=== PATIENT | male | born 1935 | race Caucasian/White ===

== ENCOUNTER 2018-07-29 18:48 | Emergency (ER) | payer MEDICARE, OTHER, SELFPAY ==
[2018-07-29 18:49] VITALS: BP 149/100; PULSE 137; RESP 24; TEMP 37.1; O2SAT 98; BMI 28.7
--- NOTE | 2018-07-29 19:15 | ED.VISSUMM ---
- ER Visit Summary Date of Service: 07/29/18 Chief Complaint: Left-sided abdominal pain History of Present Illness: The patient is a 82 M presenting with sudden onset of left lower quadrant pain. This started several hours prior to arrival. He denies nausea or vomiting. He noted blood in his urine just prior to arrival. No history of kidney stones. No other complaints. Physical Examination: Vitals are stable. Patient is afebrile. Alert no acute distress. HEENT exam is unremarkable. Neck is supple. Lungs are clear and equal bilaterally. Heart is regular rate and rhythm. Abdomen is soft left lower quadrant tenderness with no rebound or guarding Back: No CVA tenderness Extremities are unremarkable. Skin is warm and dry. No focal neurologic deficit. Remainder of exam is unremarkable. Emergency Department Course and Treatment: Patient initially declined pain medications. He was then given Tylenol. CBC, chemistries unremarkable. Urinalysis shows 0 white cells, over [address] flank shows mild hydronephrosis caused by left 2.9 mm distal ureteral stone. Patient is resting comfortably in the emergency department. He is requesting one dose of pain medication and was given OxyIR. He is given a prescription for Percocet. Advised to follow-up with Dr. Rosas. Advised to return to the ED for worsening complaints. Disposition: Discharge home Impression: Urolithiasis This note was generated with [employer] dictation software. It may contain incorrect words, spelling, and punctuation that were not noted in review of the chart prior to signing ED Disposition - Plan for ED Patient: Chief Complaint: Abd Pain Instructions: ED Stone Renal W Colic Prescriptions: Oxycodone HCl/Acetaminophen [Percocet 5/325] 1 tablet PO Q6H PRN PRN 3 Days #12 tablet PRN Reason: Pain Referrals: Lior Rosas MD [STAFF PHYSICIAN] - Michael Nelson MD [STAFF PHYSICIAN] - Elbert Newton MD [Primary Care Provider] -
[2018-07-29] MEDS: 0.9% Normal Saline 1,000 ML 250 ML IV (19:33)
[2018-07-29 19:41] LABS: Mucous, Urine 0 SEEN /hpf (<or=2+); White Blood Cells 0 SEEN /hpf (0-5)
[2018-07-29 19:57] LABS: Color, Urine Red (Yellow); Glucose, Dipstick Normal (Normal); Ketone-Dipstick 50 mg/dl (Negative); Leukocyte Esterase-Dipstick 25 /ul (Negative); Nitrite-Dipstick Negative (Negative); Occult Blood-Urine 250 /ul (Negative); Protein-Dipstick 30 mg/dl (Negative); Specific Gravity, Urine 1.015 (1.002-1.030); Urine Bilirubin Dipstick Negative (Negative); Urine Clarity Sl. Cloudy (Clear); Urine Urobilinogen 1 mg/dl (Normal)
[2018-07-29 19:57] LABS: Absolute Neutrophil Count 7.1 X10^3/uL (2.0-7.7); Basophil# 0.02 X10^3/uL; Basophil% 0.2 % (0-1); Eosinophils% 1.1 % (0-5); Hematocrit 45.9 % (40-54); Hemoglobin 15.3 g/dl (13.0-16.5); Lymphocyte % 12.2 % (19-41); Mean Corp Hgb Conc 33.3 g/gl (32-36); Mean Corpuscular Hgb 32.5 pg (27.0-32.0); Mean Corpuscular Volume 97.5 fL (80-94); Mean Platelet Vol. 10.5 fl (6.2-12.0); Monocyte# 0.69 X10^3/uL; Monocyte% 7.7 % (0-10); Neutrophil # 7.05 X10^3/uL (2.7-7.7); Neutrophil % 78.6 % (47-70); Platelet Count 245 K/mm3 (150-450); RBC Distribution Width CV 13.6 % (11.6-14.6); Red Blood Count 4.71 M/mm3 (4.6-6.2)
[2018-07-29 19:58] LABS: POSITIVE COUNT NO; POSITIVE DIFFERENTIAL NO; POSITIVE MORPHOLOGY NO
[2018-07-29 20:05] LABS: Bacteria RARE /hpf (None Seen); Red Blood Cells-Urine > 100 SEEN /hpf (0-5); Squamous Epithelial Cells - UA 0-5 SEEN /hpf (0-5)
[2018-07-29 20:06] LABS: Anion Gap 10 (5-15); BUN 18 mg/dL (7-18); BUN/Creat Ratio 17.3 RATIO (10-20); Calcium,Total 8.6 mg/dL (8.5-10.1); Chloride 108 mmol/L (98-107); Creatinine, Serum 1.04 mg/dL (0.70-1.30); EST Glomerular Filtration Rate 73 mL/min (>60); Est Glom Filt Rate - Afr Amer 88 mL/min (>60); Estimated Creatinine Clearance 58.49 ml/min; Glucose 93 mg/dL (74-106); Potassium 3.8 mmol/L (3.5-5.1); Sodium Level 143 mmol/L (136-145)
[2018-07-29 20:10] VITALS: BP 137/90; PULSE 95; RESP 16; O2SAT 93
[2018-07-29] MEDS: Acetaminophen 500 MG Tablet 1000 MG PO (20:17)
--- NOTE | 2018-07-29 21:00 | ED.DEP ---
ED Disposition - Plan for ED Patient: Chief Complaint: Abd Pain Instructions: ED Stone Renal W Colic Prescriptions: Oxycodone HCl/Acetaminophen [Percocet 5/325] 1 tablet PO Q6H PRN PRN 3 Days #12 tablet PRN Reason: Pain Referrals: Elbert Newton MD [Primary Care Provider] - Lior Rosas MD [STAFF PHYSICIAN] - Michael Nelson MD [STAFF PHYSICIAN] -
[2018-07-29] MEDS: oxyCODONE 5 MG Tablet PO (21:17)
[2018-07-29 21:34] VITALS: BP 131/79; PULSE 89; RESP 16; O2SAT 97
== END 2018-07-29 21:36 | disposition home or self-care (01) ==
PROVIDERS: Emergency Provider Emergency Medicine; Family Provider Internal Medicine; PCP Internal Medicine
DX: N20.9 Urinary calculus, unspecified (principal); R31.9 Hematuria, unspecified; E78.00 Pure hypercholesterolemia, unspecified; I10 Essential (primary) hypertension; N13.30 Unspecified hydronephrosis
CPT/HCPCS: 74176; 80048; 81001; 85025; 96360; 96361; 99284; J7030; A4216

== ENCOUNTER → 2022-03-23 | Outpatient (CLI) | payer MEDICARE, OTHER, SELFPAY ==
--- NOTE | 2022-03-23 13:26 | CDU_ITS ---
Reason For Study: Transient vision loss Rt. Velocities/BP Lt. Velocities/BP Prox CCA 106/10 cm/sec. Prox CCA 95/16 cm/sec. Mid CCA 79/11 cm/sec. Mid CCA 94/13 cm/sec. Dist CCA 54/8 cm/sec. Dist CCA 65/10 cm/sec. Prox ICA 39/9 cm/sec. Prox ICA 79/11 cm/sec. Mid ICA 43/13 cm/sec. Mid ICA 58/16 cm/sec. Dist ICA 47/13 cm/sec. Dist ICA 51/13 cm/sec. Rt. ICA/CCA = 0.6. Lt. ICA/CCA = 0.8. Prox ECA 110/9 cm/sec. Prox ECA 84/5 cm/sec. Rt. Vert. 55/5 cm/sec. Lt. Vert. 37/7 cm/sec. Right Extracranial There is heterogeneous, irregular atherosclerotic plaque noted in the right common carotid artery. There is heterogeneous, irregular atherosclerotic plaque noted in the right internal carotid artery. There is heterogeneous, irregular atherosclerotic plaque noted in the right external carotid artery. Antegrade flow is noted in the right vertebral artery. Left Extracranial There is heterogeneous, irregular atherosclerotic plaque noted in the left common carotid artery. There is heterogeneous, irregular atherosclerotic plaque noted in the left internal carotid artery. There is intimal thickening but no significant atherosclerotic plaque noted in the left external carotid artery. Antegrade flow is noted in the left vertebral artery. Procedure Carotid Duplex 04361. This is a Carotid Duplex examination using B-mode, color flow and specral Doppler. Exam performed in department. VL/Carotid Duplex Ultrasound Interpretation Summary Mild (<50%) stenosis right extracranial internal carotid. Mild (<50%) stenosis left extracranial internal carotid. Flow within the vertebral arteries is antegrade bilaterally. Ordering Physician: Kenroy Gonzalez Referring Physician: Elbert Newton Performed By: Carla Ramon, CHONG, RVT
== END | disposition home or self-care (01) ==
LOC: CVS 13:09
PROVIDERS: PCP Internal Medicine; Visit Provider Ophthalmology
DX: H53.123 Transient visual loss, bilateral (principal)
CPT/HCPCS: 93880

== ENCOUNTER → 2022-05-06 | Outpatient (CLI) | payer MEDICARE, OTHER, SELFPAY ==
--- NOTE | 2022-05-06 11:40 | RAD_ITS ---
EXAM: XR SACRUM AND COCCYX, 2 OR MORE VIEWS CLINICAL INDICATION: FALL pain TECHNIQUE: Frontal and lateral views of the sacrum and coccyx. This report was created using [employer] report generation technology. COMPARISON: None. FINDINGS: SACRUM/COCCYX: Unremarkable. No displaced fracture. No destructive or sclerotic lesions. Note that overlapping bowel shadows may however obscure fine detail in the frontal view. Sacroiliac joints are unremarkable. DISC SPACES: Degenerative findings of the lumbar spine. SOFT TISSUES: Unremarkable. No soft tissue swelling or gas. OTHER FINDINGS: There are prostatic seed implants. RAD/Sacrum-Coccyx min 2 Views IMPRESSION: No acute findings in the sacrum or coccyx. Electronically Signed: Perez Baker MD at 18:01 EDT Reading Location ID and State: [facility] [place] , Service support ,
--- NOTE | 2022-05-06 11:40 | RAD_ITS ---
STUDY: X-RAY - LUMBAR SPINE REASON FOR EXAM: Male, 86 years old. Low back pain following FALL TECHNIQUE: 3 view(s) of the lumbar spine were obtained. COMPARISON: None FINDINGS: There is straightening of the normal lumbar lordosis. There is a dextroscoliosis of the lumbar spine. There is a normal alignment of the vertebrae. There is diffuse demineralization with multi-level endplate spondylosis. There is multi-level degenerative disc disease with multi-level disc space narrowing. 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 Mild loss of height of the superior endplate of the L2 vertebrae. Facet joint osteoarthritis. There is atherosclerotic calcification of the abdominal aorta without a demonstrated aneurysm. Large amount of fecal material is seen in the colon. RAD/Lumbar Spine 2 or 3 Views IMPRESSION: Degenerative changes of the spine, as detailed above. Almost complete collapse of the L1 vertebra with loss of height of the L2 vertebrae. Electronically Signed: Rashad Santana MD at 16:23 EDT ,
== END | disposition home or self-care (01) ==
LOC: RAD 11:30
PROVIDERS: PCP Internal Medicine; Referring Provider Anesthesiology Pain Medicine; Visit Provider Anesthesiology Pain Medicine
DX: M54.50 Low back pain, unspecified (principal); W19.XXXA Unspecified fall, initial encounter
CPT/HCPCS: 72100; 72220

== ENCOUNTER 2022-07-30 12:00 | Outpatient (RCR) | payer MEDICARE, OTHER, SELFPAY ==
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
--- NOTE | 2022-07-30 12:48 | HP.PTDCSUM_ITS ---
It has been my pleasure to treat GEN RODRIGUEZ referred by Dr. Elbert Newton MD, with the diagnosis of ABNORMAILITY OF GAIT , RIGHT LEG WEAKNESS for a total of 9 visit(s). Discharge Date: 07/30/22 Please see the following information for a summary of their discharge status. Subjective: Ready or d/c knee pain is better % Improvement: 50 Objective/Function: POSTURE: mod thoracic posture. GAIT: mod forward posture with rollator. MMT: peak force improved by 5 quads/hams/hip Goal 1:: Patient to be I with HEP for right leg Goal Progress: Goal Met Goal 2:: Patient to ambulate with cane with improved quality of gait in communit y Goal Progress: Goal Met Goal 3:: Patient increase strength of hip flexion/abduction and hamstring by 5- 10 peak force to improve function and stairs with rails Goal Progress: Goal Met Goal 4:: Patient to improve 30sec sit-stand by 3-5 to improve function Goal Progress: Goal Met Goal 5:: Patient to improve CATSIB by 5-10 points to improve balance Goal Progress: Goal Met Goal 6:: Patient to improve improve LFES score by 5-10 points to improve gait Goal Progress: Goal Met Plan: D/C TO HOME Discharge Comments: hep If there are questions or concerns regarding this patient's physical therapy, please feel free to call me at [phone]. Thank you for the referral of this patient. Sincerely, Jj Santiago, PT, Cert MDT, OCS Balance/Gait/Functional tests - Balance/Special Test Scores CATSIB Score (Max score 120 seconds): 15 Lower Extremity Functional Score: 35 30 Second Chair Rise Test Seconds: 13
== END 2022-07-30 19:00 | disposition home or self-care (01) ==
LOC: PT 12:00
PROVIDERS: PCP Internal Medicine; Referring Provider Internal Medicine; Visit Provider Internal Medicine
DX: R26.9 Unspecified abnormalities of gait and mobility (principal); M62.81 Muscle weakness (generalized)
CPT/HCPCS: 97110; 97162; 97530

== ENCOUNTER 2024-11-09 14:00 | Outpatient (RCR) | payer MEDICARE, OTHER, SELFPAY ==
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
--- NOTE | 2024-10-02 16:33 | HP.PTREVAL ---
Re-Evaluation Intro: Dr. Elbert Newton MD, It has been my pleasure to treat GEN RODRIGUEZ over the last 9 visits for Gait/weakness. Please see the progress note below for an update on the physical therapy plan of care! Subjective Subjective: Pt reports he feels like this has really helped him. Objective Objective/Function: TU seconds MMT: R knee flex and ext 4-/5. All other measurements 5/5 Gait: Pt is able to ambulate 240 feet with rollator and CGAx1 until needing to sit and rest. L knee buckled on him twice. Pt is showing excellent progress, but still lacks functional strength for community ambulation Plan Plan Plan: 10/02/24- Cont with stair negotiation, balance training, gait training, B LE strengthening, core strengthening Balance/Gait/Functional tests Balance/Special Test Scores Lower Extremity Functional Score: 22 Goals Goals Goal 1:: Pt will increase B leg strength by one grade to aid with negotiating stairs. Goal Time Frame: 2-4 Weeks Goal Progress: New goal Goal 2:: Pt will be I with HEP. Goal Time Frame: 2-4 Weeks Goal Progress: Progressing Goal 3:: Pt will complete a TUG in under 30 sec to aid with ambulating community distances. Goal Time Frame: 2-4 Weeks Goal Progress: Goal Met Goal 4:: Pt will be able to ambulate 200 ft with the use of an AD to aid with ambulation. Goal Time Frame: 2-4 Weeks Goal Progress: Goal Met Goal 5:: Pt will be able to ambulate greater than 300 feet to aid with community ambulation Goal Time Frame: 2-4 Weeks Goal Progress: New goal Anticipated Interventions Anticipated Interventions Patient/Client Instruction: Educate patient on: Plan of Care Therapeutic Exercise to Include: Strength training, Balance training, Body mechanics, Gait and locomotor training and Dynamic Lumbar Stabilization For the Purpose of:: To improve muscle performance and motor function, To improve ability to perform ADL's and To improve gait and locomotor functions Re-Evaluation Ending Re-evaluation ending: Please do not hesitate to contact me at [phone] by phone or if you have questions or concerns regarding this new plan of care! Sincerely, Perez Pollock, PT, ATC
--- NOTE | 2024-11-09 15:34 | HP.PTDCSUM_ITS ---
Discharge Summary D/C summary: It has been my pleasure to treat GEN RODRIGUEZ referred by Dr. Elbert Newton MD, with the diagnosis of Gait/weakness for a total of 17 visit(s). Discharge Date: Please see the following information for a summary of their discharge status. Subjective Subjective: I am ready to be finished. We leave in a week, and I will continue with my exercises Overall Improvement % Improvement: 85 Objective Objective/Function: Pt is I with HEP Pt is able to ambulate greater than 340 feet with rollator MMT: L LE is grossly 5/5 throughout while R LE is 4/5 throughout Pt has achieved all Rx goals Goals Goal 1:: Pt will increase B leg strength by one grade to aid with negotiating stairs. Goal Progress: Goal Met Goal 2:: Pt will be I with HEP. Goal Progress: Goal Met Goal 3:: Pt will complete a TUG in under 30 sec to aid with ambulating community distances. Goal Progress: Goal Met Goal 4:: Pt will be able to ambulate 200 ft with the use of an AD to aid with ambulation. Goal Progress: Goal Met Goal 5:: Pt will be able to ambulate greater than 300 feet to aid with community ambulation Goal Progress: Goal Met Plan Plan: Discharge to [facility] D/C Information d/c sentence: If there are questions or concerns regarding this patient's physical therapy, please feel free to call me at [phone]. Thank you for the referral of this patient. Sincerely, Perez Pollock, PT, ATC Balance/Gait/Functional tests Balance/Special Test Scores Lower Extremity Functional Score: 42 Improvement % Improvement: 85
== END 2024-11-09 19:00 | disposition home or self-care (01) ==
LOC: PT 14:00
PROVIDERS: PCP Internal Medicine; Referring Provider Internal Medicine; Visit Provider Internal Medicine
DX: R29.898 Other symptoms and signs involving the musculoskeletal system (principal); R60.0 Localized edema; R26.9 Unspecified abnormalities of gait and mobility; Z98.890 Other specified postprocedural states
CPT/HCPCS: 97110; 97161; 97530

== ENCOUNTER 2025-05-03 11:00 | Outpatient (RCR) | payer MEDICARE, OTHER, SELFPAY ==
--- NOTE | 2025-04-04 15:36 | HP.PTEVAL_ITS ---
Patient's Visit Information Visit Information Visit Information: GEN RODRIGUEZ is a 89 year old M referred to Physical Therapy by Dr. Elbert Newton MD with a diagnosis of Debility. Date of Evaluation: 04/04/25 Physical Therapist: Perez Pollock, PT, ATC Visit Plan Frequency: 2x /Week Duration: 4-6 Weeks Plan: R LE strengthening, balance and proprio, gait training, stair negotiation, nustep, and HEP Subjective Subjective: Pt reports he returned from [place] 3 weeks ago. Pt reports while he was in [place], he was on an avid walking plan which really helped to keep him in shape. Pt notes as he has returned from [place], he has not been walking much and notes a significant decline in his tolerance for ambulation. Pt reports he has no Hx of falls. Pt reports he has difficulty with lifting his R foot with ambulation. Pt reports he has numbness in his L LE from the knee downwards, and his R foot is numb. Pt reports he uses a rollator while ambulating throughout the community. Pt notes he has 2 canes that he uses to ambulate in his house. Pt notes he has stairs to enter his house. Pt is not in pain at this time. Pt reports his major goal is to increase b LE strength and improve overall balance. Objective Objective: Neuro: B LE sensation is WNL to light touch MMT: R LE is gossly 4/5, while L LE is 5/5 throughout TU sec Gait: Pt was able to ambulate from the waiting room to the treatment room for 140 feet with rollator until having to sit down. Sit to stand: 9 reps in 30 sec Balance/Special Test Scores Lower Extremity Functional Score: 25 Goals Goal 1:: Increase R LE strength x 1 grade to aid with stair negotiation Goal Time Frame: 4-6 Weeks Goal 2:: Pt will perform the TUG in under 30 sec to aid with [id number] mobility Goal Time Frame: 4-6 Weeks Goal 3:: Pt will be able to ambulate greater than 600 feet to aid with community ambulation Goal Time Frame: 4-6 Weeks Goal 4:: Pt to perform 12 sit to stands in 30 seconds to aid with transfers Goal Time Frame: 4-6 Weeks Rehabilitation Potential Physical Therapy Diagnosis: Pt has R LE weakness, decreased balance, and unsteady gait secondary to debilitation Rehabilitation Potential: Good Anticipated Interventions Patient/Client Instruction: Educate patient on: Condition and Plan of Care For the Purpose of:: To improve self management Therapeutic Exercise to Include: Strength training, Endurance training, Balance training, Gait and locomotor training, Active ROM and Dynamic Lumbar Stabilization For the Purpose of:: To increase ROM, To improve muscle performance and motor function and To increase tolerance to activity/condition/position Text: Thank you for the opportunity to evaluate your patient. For Medicare and Medicare HMO plans, please review the plan of care and approve it. It will need to be FAXED BACK to us at [phone] for Medicare purposes. For Medicare only, by signing this I certify the plan of care. Please let me know if there are questions or concerns regarding this plan of care. Physician Signature: Date:
--- NOTE | 2025-05-03 11:59 | HP.PTDCSUM ---
Discharge Summary D/C summary: It has been my pleasure to treat GEN RODRIGUEZ referred by Dr. Elbert Newton MD, with the diagnosis of Debility for a total of 9 visit(s). Discharge Date: Please see the following information for a summary of their discharge status. Subjective Subjective: Pt reports he feels like he has made very minimal improvements at this time. Overall Improvement % Improvement: 30 Objective Objective/Function: MMT: R knee ext is 5/5. All other R LE MMT 4-/5 throughout pt performed 10 sit to stands in 30 seconds Pt performed the TUG test in 22 seconds Pt is able to ambulate 340 feet until needing to sit down secondary to fatigue Goals Goal 1:: Increase R LE strength x 1 grade to aid with stair negotiation Goal Progress: Progressing Goal 2:: Pt will perform the TUG in under 30 sec to aid with [id number] mobility Goal Progress: Goal Met Goal 3:: Pt will be able to ambulate greater than 600 feet to aid with community ambulation Goal Progress: Progressing Goal 4:: Pt to perform 12 sit to stands in 30 seconds to aid with transfers Goal Progress: Progressing Plan Plan: Discharge to health and wellness program D/C Information d/c sentence: If there are questions or concerns regarding this patient's physical therapy, please feel free to call me at [phone]. Thank you for the referral of this patient. Sincerely, Perez Pollock, PT, ATC Balance/Gait/Functional tests Balance/Special Test Scores Lower Extremity Functional Score: 21 Improvement % Improvement: 30
== END 2025-05-03 19:00 | disposition home or self-care (01) ==
LOC: PT 11:00
PROVIDERS: PCP Internal Medicine; Referring Provider Internal Medicine; Visit Provider Internal Medicine
DX: R29.898 Other symptoms and signs involving the musculoskeletal system (principal); R60.0 Localized edema
CPT/HCPCS: 97110; 97161; 97530

== ENCOUNTER 2025-06-05 09:07 | Emergency (ER) | payer MEDICARE, OTHER, SELFPAY ==
[2025-06-05 09:08] VITALS: BP 166/104; PULSE 93; RESP 20; TEMP 36.3; O2SAT 98
--- NOTE | 2025-06-05 09:46 | VDLE_ITS ---
Reason For Study Reason For Study: RLE Pain RIGHT LEFT GSV is normal. CFV is compressible, spontaneous, phasic, competent, CFV is compressible, spontaneous, phasic, competent and demonstrates normal augmentation. and demonstrates normal augmentation. FV is compressible, spontaneous, phasic, competent and demonstrates normal augmentation. POP V is compressible, spontaneous, phasic, competent and demonstrates normal augmentation. T/P Trunk is compressible. PTV is compressible. RT PerV is compressible. Noncompressible area with intraluminal echoes at distal calf noted. Possible Thrombophlebitis in small area of Varicose Vein. Procedure This is a venous duplex using B-mode, color flow and spectral Doppler. Exam performed portable in ED. The exam was diagnostic. A preliminary report was called and/or faxed to Dr. Robles. VL/Venous Duplex US, Unilateral Interpretation Summary Acute superficial venous thrombosis noted in right calf varicosity Deep veins of the right lower extremity are patent and compressible segmentally . There is no evidence of right lower extremity deep vein thrombosis. The right great saphenous vein appears patent a nd compressible segmentally. Ordering Physician: Arcenio Robles Referring Physician: Elbert Newton M.D. Performed By: Dieter Araujo RVT
--- NOTE | 2025-06-05 09:48 | ED.VIS.LOWEX ---
HPI History of Present Illness Chief Complaint: Lower Extremity Injury Narrative Narrative: 89-year-old male presents with his because of painful lump and swelling on his right lower extremity on the medial aspect of his lower right leg. He denies any recent trauma. He does not take blood thinners. He states yesterday everything was fine but he woke up this morning and noticed that there was pain, swelling, and discoloration of an area on of his lower leg. He denies any chest pain or shortness of breath. His does not relate a history that he had remotely a spontaneous blood vessel bleed to his adrenal gland which filled up his chest. He and his state they are concerned about a blood clot. PFSH PFS Home Medications ?Medication ?Instructions ?Recorded ?Last Taken ?Type pravastatin 10 mg tablet 10 mg PO QHS 04/24/17 06/04/25 History amlodipine 5 mg tablet 5 mg PO DAILY 07/29/18 06/04/25 History Allergy/AdvReac Type Severity Reaction Status Date / Time lisinopril Allergy Angioedema Verified 06/05/25 09:09 Surgical History H/O Spinal surgery Social History Smoking Status: Never smoker ROS ROS ED ROS Narrative Review of systems positive for pain and swelling on the medial aspect of right lower leg. No chest pain, no shortness of breath, no recent trauma. No fevers or chills, no exacerbating or alleviating factors. EXAM Physical Exam Narrative Exam Narrative: Afebrile. Vital signs noted. Nontoxic-appearing. Cardiovascular examination regular rate and rhythm. Lungs are clear to auscultation bilaterally. Focused examination of the right lower leg does show an area that is tender and mildly fluctuant with overlying dark purple area, no crepitance or erythema surrounding. Neurovascular intact distally. No medial thigh pain. No circumferential swelling. Const Vital Signs: 06/05/25 09:08 06/05/25 11:07 06/05/25 11:08 Temperature 97.4 F L 97.4 F L Temperature Source Temporal Pulse Rate 93 98 Respiratory Rate 20 H 18 Blood Pressure 166/104 H 162/102 H 162/102 H Blood Pressure Mean 124 122 122 Pulse Ox 98 98 Oxygen Delivery Method Room Air MDM MDM MDM Narrative Medical decision making narrative: The differential diagnosis does include but not limited to DVT versus varicose vein thrombosis/superficial thrombophlebitis versus abscess versus hematoma. Do not feel that incision and drainage is currently indicated and in discussion with the patient and his , they declined. Their main concern is for DVT. He is not showing any signs of pulmonary embolism such as chest pain or shortness of breath. I do not feel he requires laboratory work or imaging of the chest. Ultrasound obtained of the right lower extremity. In discussion with the welding technician, he is negative for DVT of the right lower extremity. The area in question is more of a hematoma, but there was no vascularity noted towards that area. It was assumed that this is more of a hematoma. However, I did receive a call back from the speech therapist technician, who thinks there is a small possibility that it may be more of a superficial thrombophlebitis. Regardless, treatment will be the same and I do not feel that incision and drainage is indicated. At this point in time, I feel he can be discharged to follow-up with his primary care provider. I do not want to perform I&D into the hematoma causing an open wound and increased bleeding. He will elevate his right lower extremity when possible and follow-up with his primary care provider. Return instructions to the emergency department were reviewed. Disposition is discharged home, in stable condition. History & Record Review Discussion w/independent historian: Patient and Family (Spouse) Discharge Plan Triage Chief Complaint: Lower Extremity Injury ED Provider: Arcenio Robles Dx/Rx/DC Orders Clinical Impression: Hematoma of right lower leg, Localized swelling of right lower leg Instructions: ED Hematoma Prescriptions: No Action pravastatin 10 MG tablet 10 mg PO QHS amlodipine 5 MG tablet 5 mg PO DAILY Patient Comments: Take 1 tablet by mouth once daily. Primary Care Provider: Elbert Newton Referrals: Elbert Newton MD [Primary Care Provider] - 1 Week if not improving Activity Restrictions/Additional Instructions: Elevate right lower extremity when possible. Follow-up with your primary care provider. Return with increased swelling, new or worsening symptoms. Print Language: Portuguese Disposition Disposition: Home, Self Care Discharge Date/Time: 06/05/25 11:10
[2025-06-05 10:25] VITALS: BMI 25.2
[2025-06-05 11:07] VITALS: BP 162/102
[2025-06-05 11:08] VITALS: BP 162/102; PULSE 98; RESP 18; TEMP 36.3; O2SAT 98
== END 2025-06-05 11:10 | disposition home or self-care (01) ==
LOC: ED 11:03
PROVIDERS: Emergency Provider Emergency Medicine; PCP Internal Medicine; Visit Provider Emergency Medicine
DX: S80.11XA Contusion of right lower leg, initial encounter (principal); R22.41 Localized swelling, mass and lump, right lower limb; X58.XXXA Exposure to other specified factors, initial encounter
CPT/HCPCS: 93971; 99282

== ENCOUNTER 2025-09-18 13:00 | Outpatient (RCR) | payer MEDICARE, OTHER, SELFPAY ==
--- NOTE | 2025-08-20 10:59 | HP.PTEVAL_ITS ---
Patient's Visit Information Visit Information Visit Information: GEN RODRIGUEZ is a 89 year old M referred to Physical Therapy by Dr. Elbert Newton MD with a diagnosis of Abnormal gait, R LE weakness. Date of Evaluation: 08/20/25 Physical Therapist: Perez Pollock, PT, ATC Visit Plan Frequency: 2x /Week Duration: 4-6 Weeks Plan: B LE strengthening, balance and proprio, core stab ex's, gait training, nustep, and HEP Subjective Subjective: Pt reports he was doing fine approximately 3 weeks ago. Pt notes he developed a hematoma at that time and had to rest and elevate his R lE as a result. Pt notes he has become very debilitated due to those circumstances. Pt reports he has now lost his confidence and does not feel steady with ambulation. pt reports he is not in any pain at this time. Pt reports he was pretty active inside his house prior to this episode. Pt was using 2 canes for ambulation in the house. Pt reports he has stairs at home, but doesnt need to use them. Pt reports his goal is to get back into the premorbid level of function prior to this episode. Pt has not had any falls in the past. Pt is mostly I with IADL's at this time. Pt notes no tingling or numbness in his LE's. Objective Objective: Neuro: B LE sensation is WNL to light touch. Gait: Pt is able to ambulate 170 feet with rollator and CGAx1 until feeling fatigued and needing to rest. MMT: R LE is grossly 3+/5 throughout while L LE is 4/5 throughout. TU seconds Balance/Special Test Scores Lower Extremity Functional Score: 25 Goals Goal 1:: Increase B LE strength x 1 grade to aid with gait and transfers Goal Time Frame: 4-6 Weeks Goal 2:: Pt will perform the TUG test in under 25 sec to aid with gait efficiency Goal Time Frame: 4-6 Weeks Goal 3:: Pt will ambulate greater that 600 feet without having to rest to aid with community ambulation Goal Time Frame: 4-6 Weeks Goal 4:: I with HEP Goal Time Frame: 4-6 Weeks Rehabilitation Potential Physical Therapy Diagnosis: Pt has abnormal gait, B LE weakness, and intolerance for prolonged ambulation secondary to debilitation Rehabilitation Potential: Good Anticipated Interventions Patient/Client Instruction: Educate patient on: Condition and Plan of Care For the Purpose of:: To improve self management Therapeutic Exercise to Include: Strength training, Endurance training, Balance training, Gait and locomotor training and Dynamic Lumbar Stabilization For the Purpose of:: To improve muscle performance and motor function, To improve ability to perform ADL's and To increase tolerance to activity/condition/position Text: Thank you for the opportunity to evaluate your patient. For Medicare and Medicare HMO plans, please review the plan of care and approve it. It will need to be FAXED BACK to us at [phone] for Medicare purposes. For Medicare only, by signing this I certify the plan of care. Please let me know if there are questions or concerns regarding this plan of care. Physician Signature: Date:
--- NOTE | 2025-11-21 07:48 | HP.PT.NRP ---
Patient Information Patient Information: GEN RODRIGUEZ was seen in my office for initial evaluation on 08/20/25. The following Plan of Care was established for this patient: POC Established Initial Frequency: 2x /Week Initial Duration: 4-6 Weeks Anticipated Interventions Patient/Client Instruction: Educate patient on: Condition and Plan of Care For the Purpose of:: To improve self management Therapeutic Exercise to Include: Strength training, Endurance training, Balance training, Gait and locomotor training and Dynamic Lumbar Stabilization For the Purpose of:: To improve muscle performance and motor function, To improve ability to perform ADL's and To increase tolerance to activity/condition/position Last Seen Last Seen: This patient was last seen in our office . Pertinent comments regarding their Physical therapy will appear below: Pt has not returned in greater than 30 days and is discontinued at this time. At this point I will be discontinuing this patient from physical therapy. I would be happy to see this patient again in the future if found appropriate by the physician. Thank you! Perez Pollock, PT, ATC Balance/Gait/Functional tests Balance/Special Test Scores Lower Extremity Functional Score: 25
== END 2025-09-18 19:00 | disposition home or self-care (01) ==
LOC: PT 13:00
PROVIDERS: PCP Internal Medicine; Referring Provider Internal Medicine; Visit Provider Internal Medicine
DX: R29.898 Other symptoms and signs involving the musculoskeletal system (principal); R26.9 Unspecified abnormalities of gait and mobility; M17.12 Unilateral primary osteoarthritis, left knee
CPT/HCPCS: 97110; 97161